=== PATIENT | female | born 1975 | race Caucasian/White ===

== ENCOUNTER → 2017-11-23 | Outpatient (CLI) | payer OTHER | LOC: STAR 10:34 | PROVIDERS: ATTEND Internal Medicine Endocrinology, Diabetes & Metabolism | DX: T88.7XXA Unspecified adverse effect of drug or medicament, initial encounter (principal) | CPT/HCPCS: 93005 ==

== ENCOUNTER 2019-06-27 06:10 | Day surgery (SDC) | payer BC ==
[~2019-06-27] VITALS: Ht 170.2 cm; Wt 82.7 kg
[2019-06-27] MEDS ORDERED: SODIUM CHLORIDE 0.9% 1,000 ML IV SCH (06:44)
[2019-06-27 06:46] VITALS: BP 124/63
[2019-06-27 07:40] LABS: INTERNATIONAL NORMALIZED RATIO 0.99 (0.93-1.1); PROTHROMBIN TIME 10.4 Seconds (9.6-11.5)
[2019-06-27] MEDS ORDERED: NALOXONE 1 MG/ML, 2ML ONE (08:22)
[2019-06-27] MEDS ORDERED: FLUMAZENIL 0.1 MG/1 ML, 5ML ONE (08:22)
[2019-06-27] MEDS ORDERED: FENTANYL PF 100 MCG/2ML ONE ×2 (08:22)
[2019-06-27] MEDS ORDERED: MIDAZOLAM 1 MG/ML, 5ML ONE (08:22)
[2019-06-27] MEDS ORDERED: LIDOCAINE 1%, 10ML ONE (08:27)
[2019-06-27] MEDS ORDERED: LIDOCAINE-MPF 1%, 5ML ONE (08:59)
[2019-07-03] MEDS ORDERED: LIOT50TA PO (09:14)
[2019-07-14] MEDS ORDERED: OXYC-302 PO (08:21)
[2019-07-14] MEDS ORDERED: IBUP-1222 PO (08:22)
[2019-07-14] MEDS ORDERED: DOCU-131 PO (08:23)
== END 2019-06-27 10:20 | disposition home or self-care (01) ==
LOC: OUT 06:10
PROVIDERS: ATTEND Internal Medicine Gastroenterology
DX: R94.5 Abnormal results of liver function studies (principal)
CPT/HCPCS: 36415; 47000; 76942; 85610; 88307; 88313; 99156; 99157; J2250; J3010; J7030; J2310

== ENCOUNTER 2019-07-03 08:47 | Outpatient (CLI) | payer BC | END 2019-07-03 23:59 | disposition home or self-care (01) | LOC: STAR 08:47 | PROVIDERS: ATTEND Obstetrics & Gynecology | DX: Z01.818 Encounter for other preprocedural examination (principal); N94.6 Dysmenorrhea, unspecified; N92.0 Excessive and frequent menstruation with regular cycle | CPT/HCPCS: 36415; 80053; 84703; 85025; 93005 ==